=== PATIENT | male | born 1960 | race Caucasian/White ===

== ENCOUNTER 2016-07-30 15:21 | Inpatient (IN) | payer OTHER ==
[2016-07-30] MEDS ORDERED: IBUPROFEN 800 MG TAB PO PRN (17:00)
[2016-07-30] MEDS ORDERED: Etanercept [Enbrel] 50 MG SQ SCH (17:00)
[2016-07-30] MEDS ORDERED: METHOTREXATE 2.5 MG TAB PO SCH (17:00)
--- NOTE | 2016-07-30 17:40 | PDOREHIP ---
Admission [facility] - Admission - 3 Day Assessment Period Admission Date/Day 1: 07/30/16 Day 2: 07/31/16 Day 3: 08/01/16 - Active Diagnoses Comorbidities and Co-existing Conditions at Admission: 72794. None of the Above - Skin Conditions Unhealed Pressure Ulcer (1 or more/Stage 1 or >)-Admission: 0. No
[2016-07-30] MEDS: oxyCODONE IR 5 MG TAB PO PRN ×2 (18:10→21:26)
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
[2016-07-30] MEDS: PHENYTOIN SODIUM EXTENDED 100 MG CAP PO SCH (20:03)
[2016-07-30] MEDS: SENNOSIDES 1 TAB PO SCH (20:03)
[2016-07-30] MEDS: morphINE SR 15 MG TAB PO SCH (20:04)
[2016-07-30] MEDS: sulfaSALAzine 500 MG TAB PO SCH (20:04)
[2016-07-30] MEDS: levETIRAcetam 500 MG TAB PO SCH (20:05)
[2016-07-30] MEDS: FAMOTIDINE 20 MG TAB PO SCH (20:05)
[2016-07-30] MEDS: ENOXAPARIN 30 MG/0.3 ML SYR SC SCH (20:08)
[2016-07-30] MEDS ORDERED: NON-FORMULARY NEW DRUG (Ranitidine Hcl [Zantac] 300 MG) PO SCH (21:00)
[2016-07-30] MEDS ORDERED: SULFASALAZINE 1000 MG PO SCH (21:00)
[2016-07-30] MEDS: IBUPROFEN 600 MG TAB PO PRN (23:28)
[2016-07-31] MEDS: oxyCODONE IR 5 MG TAB PO PRN ×6 (01:46→23:08)
[2016-07-31] MEDS: IBUPROFEN 600 MG TAB PO PRN ×3 (06:02→23:09)
[2016-07-31 08:52] LABS: % IMMATURE GRANULYOCYTES 0.3 % (0.0-1.1); ABSOLUTE IMMATURE GRANULOCYTES 0.02 10^3/uL (0.00-0.10); ADD DIFF? NO; ADD MORPH? NO; ADD SCAN? NO; ATYPICAL LYMPHOCYTE FLAG 0 (0-99); FRAGMENT RBC FLAG 0 (0-99); HEMATOCRIT 27.1 % (40.0-51.0); HEMOGLOBIN 9.4 g/dL (13.7-17.5); LEFT SHIFT FLG 0 (0-99); LIPEMIA HEMOLYSIS FLAG 90 (0-99); MEAN CELL HEMOGLOBIN 35.7 pg (27.9-34.1); MEAN CELL HEMOGLOBIN CONCENTR. 34.7 g/dL (32.4-36.7); MEAN PLATELET VOLUME 10.8 fL (8.7-11.7); PLATELET CLUMPS FLAG 10 (0-99); PLATELET COUNT 102 10^3/uL (150-400); RED BLOOD CELL COUNT 2.63 10^6/uL (4.40-6.38); RED CELL DISTRIBUTION WIDTH 13.1 % (11.5-15.2)
[2016-07-31] MEDS: FOLIC ACID 1 MG TAB PO SCH (09:00)
[2016-07-31] MEDS: FAMOTIDINE 20 MG TAB PO SCH ×2 (09:00→21:33)
[2016-07-31] MEDS: morphINE SR 15 MG TAB PO SCH ×2 (09:01→21:33)
[2016-07-31] MEDS: levETIRAcetam 500 MG TAB PO SCH ×2 (09:01→21:33)
[2016-07-31] MEDS: NICOTINE 14 MG/24 HR PATCH TD SCH (09:02)
[2016-07-31] MEDS: POLYETHYLENE GLYCOL 3350 17 GM PKT PO SCH (09:04)
[2016-07-31] MEDS: SENNOSIDES 1 TAB PO SCH ×2 (09:04→21:33)
[2016-07-31] MEDS: PHENYTOIN SODIUM EXTENDED 100 MG CAP PO SCH ×2 (09:04→21:33)
[2016-07-31] MEDS: sulfaSALAzine 500 MG TAB PO SCH ×2 (09:05→21:33)
[2016-07-31 09:12] LABS: ANION GAP 6 mEq/L (8-16); CALCIUM 8.3 mg/dL (8.5-10.4); CARBON DIOXIDE 28 mEq/l (22-31); CHLORIDE 102 mEq/L (97-110); CREATININE 0.5 mg/dL (0.7-1.3); GLOMERULAR FILTRATION RATE > 60; GLUCOSE 90 mg/dL (70-100); POTASSIUM 3.5 mEq/L (3.5-5.2); SODIUM 136 mEq/L (134-144)
[2016-07-31] MEDS: ENOXAPARIN 30 MG/0.3 ML SYR SC SCH (09:18)
[2016-07-31] MEDS ORDERED: ENOXAPARIN 120 MG/0.8 ML SYR SC SCH (13:00)
[2016-07-31] MEDS ORDERED: ENOXAPARIN 80 MG/0.8 ML SYR SC ONE ×3 (13:00→14:50)
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
[2016-07-31] MEDS: BISACODYL 10 MG SUPP PR PRN (19:51)
[2016-07-31] MEDS: ENOXAPARIN 120 MG/0.8 ML SYR SC SCH (21:34)
[2016-08-01] MEDS: oxyCODONE IR 5 MG TAB PO PRN ×2 (03:27→12:36)
[2016-08-01] MEDS: ENOXAPARIN 120 MG/0.8 ML SYR SC SCH ×2 (08:39→20:31)
[2016-08-01] MEDS: POLYETHYLENE GLYCOL 3350 17 GM PKT PO SCH (08:40)
[2016-08-01] MEDS: FOLIC ACID 1 MG TAB PO SCH (08:40)
[2016-08-01] MEDS: morphINE SR 15 MG TAB PO SCH (08:40)
[2016-08-01] MEDS: levETIRAcetam 500 MG TAB PO SCH ×2 (08:40→20:30)
[2016-08-01] MEDS: PHENYTOIN SODIUM EXTENDED 100 MG CAP PO SCH ×2 (08:40→20:29)
[2016-08-01] MEDS: SENNOSIDES 1 TAB PO SCH ×2 (08:40→20:31)
[2016-08-01] MEDS: sulfaSALAzine 500 MG TAB PO SCH ×2 (08:40→20:31)
[2016-08-01] MEDS: FAMOTIDINE 20 MG TAB PO SCH ×2 (08:40→20:31)
[2016-08-01] MEDS: NICOTINE 14 MG/24 HR PATCH TD SCH (08:47)
[2016-08-01] MEDS: ACETAMINOPHEN 325 MG TAB PO SCH ×2 (12:37→17:15)
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
[2016-08-01] MEDS ORDERED: PNEUMOC 13-VAL CONJ-DIP CRM/PF 0.5 ML SYR IM ONE (15:00)
[2016-08-01] MEDS ORDERED: WARFARIN SODIUM 5 MG TAB PO SCH (16:00)
[2016-08-01] MEDS: IBUPROFEN 600 MG TAB PO SCH (17:17)
[2016-08-01] MEDS: morphINE SR 30 MG TAB PO SCH (20:28)
[2016-08-02] MEDS: ACETAMINOPHEN 325 MG TAB PO SCH ×5 (00:52→23:24)
[2016-08-02] MEDS: IBUPROFEN 600 MG TAB PO SCH ×2 (00:53→06:43)
[2016-08-02 08:00] LABS: INR 1.01 (0.83-1.16); PROTIME(PATIENT) 13.2 SEC (12.0-15.0)
[2016-08-02] MEDS: ENOXAPARIN 120 MG/0.8 ML SYR SC SCH ×2 (08:59→20:57)
[2016-08-02] MEDS: FAMOTIDINE 20 MG TAB PO SCH ×2 (09:00→20:56)
[2016-08-02] MEDS: FOLIC ACID 1 MG TAB PO SCH (09:00)
[2016-08-02] MEDS: PHENYTOIN SODIUM EXTENDED 100 MG CAP PO SCH ×2 (09:01→20:55)
[2016-08-02] MEDS: NICOTINE 14 MG/24 HR PATCH TD SCH (09:01)
[2016-08-02] MEDS: morphINE SR 30 MG TAB PO SCH ×2 (09:01→20:54)
[2016-08-02] MEDS: levETIRAcetam 500 MG TAB PO SCH ×2 (09:01→20:56)
[2016-08-02] MEDS: SENNOSIDES 1 TAB PO SCH ×2 (09:01→20:55)
[2016-08-02] MEDS: POLYETHYLENE GLYCOL 3350 17 GM PKT PO SCH (09:01)
[2016-08-02] MEDS: sulfaSALAzine 500 MG TAB PO SCH ×2 (09:01→20:56)
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
[2016-08-02] MEDS: oxyCODONE IR 5 MG TAB PO PRN ×4 (09:35→22:09)
[2016-08-02] MEDS: CEPHALEXIN 500 MG CAP PO SCH ×3 (13:04→23:24)
[2016-08-02] MEDS: WARFARIN SODIUM 5 MG TAB PO SCH (17:19)
[2016-08-03] MEDS: oxyCODONE IR 5 MG TAB PO PRN ×4 (04:01→22:55)
[2016-08-03] MEDS ORDERED: ACETAMINOPHEN 325 MG TAB ONE ×2 (05:54)
[2016-08-03] MEDS ORDERED: CEPHALEXIN 500 MG CAP PO ONE (05:54)
[2016-08-03] MEDS: CEPHALEXIN 500 MG CAP PO SCH ×3 (06:10→18:11)
[2016-08-03] MEDS: ACETAMINOPHEN 325 MG TAB PO SCH ×3 (06:10→18:11)
[2016-08-03] MEDS: ENOXAPARIN 120 MG/0.8 ML SYR SC SCH ×2 (08:16→20:04)
[2016-08-03] MEDS: PHENYTOIN SODIUM EXTENDED 100 MG CAP PO SCH ×2 (08:17→20:03)
[2016-08-03] MEDS: BISACODYL 10 MG SUPP PR PRN (08:17)
[2016-08-03] MEDS: NICOTINE 14 MG/24 HR PATCH TD SCH (08:17)
[2016-08-03] MEDS: FAMOTIDINE 20 MG TAB PO SCH (08:17)
[2016-08-03] MEDS: FOLIC ACID 1 MG TAB PO SCH (08:17)
[2016-08-03] MEDS: sulfaSALAzine 500 MG TAB PO SCH ×2 (08:17→20:03)
[2016-08-03] MEDS: levETIRAcetam 500 MG TAB PO SCH ×2 (08:17→20:02)
[2016-08-03] MEDS ORDERED: morphINE SR 30 MG TAB PO ONE (08:23)
[2016-08-03] MEDS: morphINE SR 30 MG TAB PO SCH ×2 (08:29→20:02)
[2016-08-03] MEDS: SENNOSIDES 1 TAB PO SCH ×2 (08:29→20:04)
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
[2016-08-03] MEDS: POLYETHYLENE GLYCOL 3350 17 GM PKT PO SCH (08:53)
[2016-08-03 09:45] LABS: INR 1.15 (0.83-1.16); PROTIME(PATIENT) 14.7 SEC (12.0-15.0)
[2016-08-03] MEDS ORDERED: RANITIDINE SYRUP 15 MG/1 ML UDSYR PO SCH (11:00)
[2016-08-03] MEDS: MAGNESIUM HYDROXIDE 30 ML UDCUP PO SCH (11:45)
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
[2016-08-03] MEDS: WARFARIN SODIUM 5 MG TAB PO SCH (15:49)
[2016-08-03] MEDS: Etanercept [Enbrel] 50 MG SQ SCH (16:11)
[2016-08-03] MEDS: METHOTREXATE 2.5 MG TAB PO SCH (16:12)
[2016-08-03] MEDS: DOCUSATE SODIUM 100 MG CAP PO SCH ×2 (18:06→20:04)
[2016-08-03] MEDS: RANITIDINE 300MG PO SCH (22:51)
[2016-08-04] MEDS: CEPHALEXIN 500 MG CAP PO SCH ×4 (00:29→17:36)
[2016-08-04] MEDS: ACETAMINOPHEN 325 MG TAB PO SCH ×4 (00:29→17:36)
[2016-08-04] MEDS: oxyCODONE IR 5 MG TAB PO PRN ×6 (03:27→22:04)
[2016-08-04] MEDS ORDERED: BACITRACIN OINTMENT 1 PACKET TP ONE (04:04)
[2016-08-04 07:58] LABS: INR 1.5 (0.83-1.16); PROTIME(PATIENT) 18.1 SEC (12.0-15.0)
[2016-08-04] MEDS: morphINE SR 30 MG TAB PO SCH ×2 (08:27→20:15)
[2016-08-04] MEDS: PHENYTOIN SODIUM EXTENDED 100 MG CAP PO SCH ×2 (08:27→20:23)
[2016-08-04] MEDS: SENNOSIDES 1 TAB PO SCH ×2 (08:27→20:23)
[2016-08-04] MEDS: levETIRAcetam 500 MG TAB PO SCH ×2 (08:27→20:15)
[2016-08-04] MEDS: DOCUSATE SODIUM 100 MG CAP PO SCH ×2 (08:28→20:17)
[2016-08-04] MEDS: ENOXAPARIN 120 MG/0.8 ML SYR SC SCH ×2 (08:28→22:05)
[2016-08-04] MEDS: NICOTINE 14 MG/24 HR PATCH TD SCH (08:28)
[2016-08-04] MEDS: FOLIC ACID 1 MG TAB PO SCH (08:28)
[2016-08-04] MEDS: sulfaSALAzine 500 MG TAB PO SCH ×2 (08:28→20:16)
[2016-08-04] MEDS: POLYETHYLENE GLYCOL 3350 17 GM PKT PO SCH (08:29)
[2016-08-04] MEDS: MAGNESIUM HYDROXIDE 30 ML UDCUP PO SCH (08:29)
[2016-08-04] MEDS: RANITIDINE 300MG PO SCH ×2 (08:33→22:05)
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
[2016-08-04] MEDS: WARFARIN SODIUM 5 MG TAB PO SCH (15:25)
[2016-08-04] MEDS: CALCIUM CARBONATE 500 MG CHEWABLE TAB PO PRN (21:06)
[2016-08-05] MEDS: ACETAMINOPHEN 325 MG TAB PO SCH ×4 (00:56→18:21)
[2016-08-05] MEDS: CEPHALEXIN 500 MG CAP PO SCH ×4 (00:57→18:21)
[2016-08-05] MEDS: oxyCODONE IR 5 MG TAB PO PRN ×7 (00:57→21:37)
[2016-08-05] MEDS: PHENYTOIN SODIUM EXTENDED 100 MG CAP PO SCH ×2 (08:43→21:35)
[2016-08-05] MEDS: POLYETHYLENE GLYCOL 3350 17 GM PKT PO SCH (08:44)
[2016-08-05] MEDS: ENOXAPARIN 120 MG/0.8 ML SYR SC SCH ×2 (08:44→21:37)
[2016-08-05] MEDS: MAGNESIUM HYDROXIDE 30 ML UDCUP PO SCH (08:44)
[2016-08-05] MEDS: sulfaSALAzine 500 MG TAB PO SCH ×2 (08:44→21:35)
[2016-08-05] MEDS: levETIRAcetam 500 MG TAB PO SCH ×2 (08:45→21:51)
[2016-08-05] MEDS: NICOTINE 14 MG/24 HR PATCH TD SCH (08:45)
[2016-08-05] MEDS: SENNOSIDES 1 TAB PO SCH ×2 (08:45→21:35)
[2016-08-05] MEDS: FOLIC ACID 1 MG TAB PO SCH (08:45)
[2016-08-05] MEDS: DOCUSATE SODIUM 100 MG CAP PO SCH ×2 (08:45→21:37)
[2016-08-05] MEDS: CHOLECALCIFEROL VIT D3 2,000 UNITS TAB/CAP PO SCH (08:45)
[2016-08-05] MEDS: morphINE SR 30 MG TAB PO SCH ×2 (08:46→21:35)
[2016-08-05] MEDS ORDERED: METHOTREXATE 2.5 MG TAB PO SCH (09:00)
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
[2016-08-05 09:25] LABS: INR 1.77 (0.83-1.16); PROTIME(PATIENT) 20.7 SEC (12.0-15.0)
[2016-08-05] MEDS: RANITIDINE 300MG PO SCH ×2 (11:21→21:37)
[2016-08-05] MEDS: FLUoxetine 20 MG CAP PO SCH (11:37)
[2016-08-05] MEDS: WARFARIN SODIUM 5 MG TAB PO SCH (15:47)
[2016-08-05] MEDS: CALCIUM CARBONATE 500 MG CHEWABLE TAB PO PRN (21:39)
[2016-08-06] MEDS: ACETAMINOPHEN 325 MG TAB PO SCH ×5 (00:35→23:18)
[2016-08-06] MEDS: CALCIUM CARBONATE 500 MG CHEWABLE TAB PO PRN ×2 (00:36→19:28)
[2016-08-06] MEDS: CEPHALEXIN 500 MG CAP PO SCH ×5 (00:36→23:18)
[2016-08-06] MEDS: oxyCODONE IR 5 MG TAB PO PRN ×7 (00:36→23:19)
[2016-08-06 08:07] LABS: INR 2.21 (0.83-1.16); PROTIME(PATIENT) 24.7 SEC (12.0-15.0)
[2016-08-06] MEDS: MAGNESIUM HYDROXIDE 30 ML UDCUP PO SCH (08:19)
[2016-08-06] MEDS: CHOLECALCIFEROL VIT D3 2,000 UNITS TAB/CAP PO SCH (08:23)
[2016-08-06] MEDS: sulfaSALAzine 500 MG TAB PO SCH ×2 (08:23→20:39)
[2016-08-06] MEDS: DOCUSATE SODIUM 100 MG CAP PO SCH ×2 (08:24→20:41)
[2016-08-06] MEDS: levETIRAcetam 500 MG TAB PO SCH ×2 (08:24→20:40)
[2016-08-06] MEDS: FOLIC ACID 1 MG TAB PO SCH (08:24)
[2016-08-06] MEDS: SENNOSIDES 1 TAB PO SCH ×2 (08:24→20:41)
[2016-08-06] MEDS: PHENYTOIN SODIUM EXTENDED 100 MG CAP PO SCH ×2 (08:24→20:38)
[2016-08-06] MEDS: morphINE SR 30 MG TAB PO SCH ×2 (08:24→20:40)
[2016-08-06] MEDS: FLUoxetine 20 MG CAP PO SCH (08:24)
[2016-08-06] MEDS: POLYETHYLENE GLYCOL 3350 17 GM PKT PO SCH (08:25)
[2016-08-06] MEDS: NICOTINE 14 MG/24 HR PATCH TD SCH (08:25)
[2016-08-06] MEDS: ENOXAPARIN 120 MG/0.8 ML SYR SC SCH ×2 (08:25→20:38)
[2016-08-06] MEDS: RANITIDINE 300MG PO SCH ×2 (08:26→20:43)
[2016-08-06] MEDS ORDERED: WARFARIN SODIUM 7.5 MG TAB PO ONE (16:00)
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
--- NOTE | 2016-08-06 17:54 | WOCRNPDOC ---
WOCRN Advanced Assessment Note - Skin Integrity Problem, Advanced Assess Left Medial Thigh Dressing Type: Allevyn Life Dressing Description: Clean/Dry, Intact Closure Description: Sutures Exudate Amount: Scant Exudate Color: Reddish/Yellow Exudate Characteristic(s): Serosanguinous Integumentary Issue Intervention: Dressing Changed, Dressing Initialed & Dated Jackie Wound Tissue: Erythema Jackie Wound Swelling: Mild Wound Bed Color: Black Wound Bed Constitution: Stable Eschar Site Odor: None Site Measurement - Head-to-Toe Length X Width X Depth (cm): 0.8cmx5.2cmx eschar Skin Integrity Problem Comment: Adhered layer of stable eschar noted along suture line. Medially, sutures are embedded in eschar. As a result, I am unable to determine if the incision is approximated. There is erythema extending approximately 2cm out from this incision, w/ some minimal jackie-wound swelling noted. There is, however, no increased warmth, no purulence, and no c/o pain when site was cleaned w/ NS and gauze. Applied Medihoney Calcium Alginate to facilitate debridement of eschar. Advised nursing to continue to monitor site for increased erythema, swelling, or pain. Report given to handicraft or hobby shop manager Ernesto and Dr. Whitmore. Wound RN will round on patient again on Thursday 08/10.
[2016-08-07] MEDS: oxyCODONE IR 5 MG TAB PO PRN ×6 (03:23→22:16)
[2016-08-07] MEDS: ACETAMINOPHEN 325 MG TAB PO SCH ×4 (05:40→23:36)
[2016-08-07] MEDS: CEPHALEXIN 500 MG CAP PO SCH ×4 (05:40→23:36)
[2016-08-07] MEDS: CHOLECALCIFEROL VIT D3 2,000 UNITS TAB/CAP PO SCH (08:16)
[2016-08-07] MEDS: ENOXAPARIN 120 MG/0.8 ML SYR SC SCH (08:17)
[2016-08-07] MEDS: MAGNESIUM HYDROXIDE 30 ML UDCUP PO SCH (08:17)
[2016-08-07] MEDS: levETIRAcetam 500 MG TAB PO SCH ×2 (08:17→21:09)
[2016-08-07] MEDS: FOLIC ACID 1 MG TAB PO SCH (08:17)
[2016-08-07] MEDS: FLUoxetine 20 MG CAP PO SCH (08:17)
[2016-08-07] MEDS: DOCUSATE SODIUM 100 MG CAP PO SCH ×2 (08:17→21:09)
[2016-08-07] MEDS: NICOTINE 14 MG/24 HR PATCH TD SCH (08:18)
[2016-08-07] MEDS: morphINE SR 30 MG TAB PO SCH ×2 (08:18→21:07)
[2016-08-07] MEDS: SENNOSIDES 1 TAB PO SCH ×2 (08:19→21:08)
[2016-08-07] MEDS: PHENYTOIN SODIUM EXTENDED 100 MG CAP PO SCH ×2 (08:19→21:07)
[2016-08-07] MEDS: RANITIDINE 300MG PO SCH ×2 (08:19→21:06)
[2016-08-07] MEDS: POLYETHYLENE GLYCOL 3350 17 GM PKT PO SCH (08:19)
[2016-08-07] MEDS: sulfaSALAzine 500 MG TAB PO SCH ×2 (08:20→21:08)
[2016-08-07 12:13] LABS: INR 2.27 (0.83-1.16); PROTIME(PATIENT) 25.2 SEC (12.0-15.0)
[2016-08-07] MEDS ORDERED: WARFARIN SODIUM 5 MG TAB PO ONE (16:00)
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
[2016-08-07] MEDS: CALCIUM CARBONATE 500 MG CHEWABLE TAB PO PRN (21:10)
[2016-08-08] MEDS: oxyCODONE IR 5 MG TAB PO PRN ×6 (04:00→22:40)
[2016-08-08] MEDS: ACETAMINOPHEN 325 MG TAB PO SCH ×4 (05:52→22:38)
[2016-08-08] MEDS: CEPHALEXIN 500 MG CAP PO SCH ×4 (05:52→22:39)
[2016-08-08 08:29] LABS: INR 2.39 (0.83-1.16); PROTIME(PATIENT) 26.3 SEC (12.0-15.0)
[2016-08-08] MEDS: MAGNESIUM HYDROXIDE 30 ML UDCUP PO SCH (08:38)
[2016-08-08] MEDS: levETIRAcetam 500 MG TAB PO SCH ×2 (08:39→22:39)
[2016-08-08] MEDS: sulfaSALAzine 500 MG TAB PO SCH ×2 (08:39→22:38)
[2016-08-08] MEDS: CHOLECALCIFEROL VIT D3 2,000 UNITS TAB/CAP PO SCH (08:39)
[2016-08-08] MEDS: FLUoxetine 20 MG CAP PO SCH (08:39)
[2016-08-08] MEDS: SENNOSIDES 1 TAB PO SCH ×2 (08:39→22:39)
[2016-08-08] MEDS: FOLIC ACID 1 MG TAB PO SCH (08:39)
[2016-08-08] MEDS: NICOTINE 14 MG/24 HR PATCH TD SCH (08:39)
[2016-08-08] MEDS: POLYETHYLENE GLYCOL 3350 17 GM PKT PO SCH (08:39)
[2016-08-08] MEDS: PHENYTOIN SODIUM EXTENDED 100 MG CAP PO SCH ×2 (08:39→22:37)
[2016-08-08] MEDS: DOCUSATE SODIUM 100 MG CAP PO SCH ×2 (08:39→22:39)
[2016-08-08] MEDS: morphINE SR 30 MG TAB PO SCH ×2 (08:40→22:40)
[2016-08-08] MEDS: RANITIDINE 300MG PO SCH ×2 (08:40→22:41)
[2016-08-08] MEDS: CALCIUM CARBONATE 500 MG CHEWABLE TAB PO PRN ×2 (15:33→18:36)
[2016-08-08] MEDS ORDERED: WARFARIN SODIUM 5 MG TAB PO ONE (16:00)
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
[2016-08-09] MEDS: oxyCODONE IR 5 MG TAB PO PRN ×5 (02:13→21:26)
[2016-08-09] MEDS: CEPHALEXIN 500 MG CAP PO SCH (06:22)
[2016-08-09] MEDS: ACETAMINOPHEN 325 MG TAB PO SCH ×4 (06:22→23:22)
[2016-08-09] MEDS: NICOTINE 14 MG/24 HR PATCH TD SCH (09:17)
[2016-08-09] MEDS: FOLIC ACID 1 MG TAB PO SCH (09:17)
[2016-08-09] MEDS: CHOLECALCIFEROL VIT D3 2,000 UNITS TAB/CAP PO SCH (09:17)
[2016-08-09] MEDS: MAGNESIUM HYDROXIDE 30 ML UDCUP PO SCH (09:17)
[2016-08-09] MEDS: sulfaSALAzine 500 MG TAB PO SCH ×2 (09:19→21:27)
[2016-08-09] MEDS: FLUoxetine 20 MG CAP PO SCH (09:19)
[2016-08-09] MEDS: PHENYTOIN SODIUM EXTENDED 100 MG CAP PO SCH ×2 (09:19→21:27)
[2016-08-09] MEDS: morphINE SR 30 MG TAB PO SCH ×2 (09:20→21:26)
[2016-08-09] MEDS: DOCUSATE SODIUM 100 MG CAP PO SCH ×2 (09:20→21:27)
[2016-08-09] MEDS: SENNOSIDES 1 TAB PO SCH ×2 (09:20→21:27)
[2016-08-09] MEDS: POLYETHYLENE GLYCOL 3350 17 GM PKT PO SCH (09:20)
[2016-08-09] MEDS: levETIRAcetam 500 MG TAB PO SCH ×2 (09:20→21:27)
[2016-08-09] MEDS: RANITIDINE 300MG PO SCH ×2 (09:31→23:22)
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
[2016-08-09] MEDS ORDERED: WARFARIN SODIUM 7.5 MG TAB PO SCH (16:00)
[2016-08-09] MEDS ORDERED: BACITRACIN OINTMENT 1 PACKET TP ONE (21:55)
[2016-08-10] MEDS: oxyCODONE IR 5 MG TAB PO PRN ×5 (03:57→20:20)
[2016-08-10] MEDS: ACETAMINOPHEN 325 MG TAB PO SCH ×3 (06:27→17:54)
[2016-08-10] MEDS: BISACODYL 10 MG SUPP PR PRN (06:27)
[2016-08-10] MEDS: MAGNESIUM HYDROXIDE 30 ML UDCUP PO SCH (08:43)
[2016-08-10] MEDS: levETIRAcetam 500 MG TAB PO SCH ×2 (08:43→20:21)
[2016-08-10] MEDS: PHENYTOIN SODIUM EXTENDED 100 MG CAP PO SCH ×2 (08:43→20:20)
[2016-08-10] MEDS: sulfaSALAzine 500 MG TAB PO SCH ×2 (08:44→20:21)
[2016-08-10] MEDS: FLUoxetine 20 MG CAP PO SCH (08:44)
[2016-08-10] MEDS: NICOTINE 14 MG/24 HR PATCH TD SCH (08:44)
[2016-08-10] MEDS: CHOLECALCIFEROL VIT D3 2,000 UNITS TAB/CAP PO SCH (08:44)
[2016-08-10] MEDS: morphINE SR 30 MG TAB PO SCH ×2 (08:45→20:20)
[2016-08-10] MEDS: FOLIC ACID 1 MG TAB PO SCH (08:45)
[2016-08-10] MEDS: SENNOSIDES 1 TAB PO SCH ×2 (08:45→20:21)
[2016-08-10] MEDS: DOCUSATE SODIUM 100 MG CAP PO SCH ×2 (08:45→20:21)
[2016-08-10] MEDS: RANITIDINE 300MG PO SCH ×2 (08:56→22:21)
[2016-08-10] MEDS: POLYETHYLENE GLYCOL 3350 17 GM PKT PO SCH (08:58)
[2016-08-10 09:27] LABS: INR 3.02 (0.83-1.16); PROTIME(PATIENT) 31.7 SEC (12.0-15.0)
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
--- NOTE | 2016-08-10 15:01 | WOCRNPDOC ---
MICHELLE Advanced Assessment Note - Skin Integrity Problem, Advanced Assess Left Knee Dressing Type: Allevyn Life Dressing Description: Clean/Dry Exudate Amount: Scant Exudate Characteristic(s): Serosanguinous Integumentary Issue Intervention: Dressing Changed Jackie Wound Tissue: Intact Jackie Wound Swelling: None Wound Bed Color: Red, Yellow Wound Bed Constitution: Granulation Tissue, Smooth Tissue, Adhered Slough Wound Edges: Epithelizing Site Measurement - Head-to-Toe Length X Width X Depth (cm): 1.9cmx2.6cmx0.1cm Skin Integrity Problem Comment: Abrasion on L knee w/ 10% adhered slough in wound bed, remaining wound bed 50/50 smooth and granulating tissues. Applied honey alginate to loosen slough, covered w/ Allevyn Life. Left Elbow Dressing Type: Allevyn Life Dressing Description: Clean/Dry, Intact Exudate Amount: Scant Exudate Color: Reddish/Yellow Exudate Characteristic(s): Serosanguinous Integumentary Issue Intervention: Dressing Changed, Silver Gel Applied Jackie Wound Tissue: Intact Jackie Wound Swelling: None Wound Bed Color: Red Wound Bed Constitution: Granulation Tissue, Smooth Tissue Skin Integrity Problem Comment: Healing abrasion noted to L elbow, w/ 80% granulation tissue. Silver gel applied, and site re-covered w/ Allevyn Life dressing. Left Medial Thigh Dressing Type: Allevyn Life Dressing Description: Clean/Dry, Intact Closure Description: Sutures Exudate Amount: Minimal Exudate Color: Reddish/Yellow Exudate Characteristic(s): Serosanguinous Integumentary Issue Intervention: Dressing Changed Jackie Wound Tissue: Ecchymotic, Erythema Jackie Wound Swelling: Mild Wound Bed Color: Black, Red, Yellow Wound Bed Constitution: Smooth Tissue, Mixed Loose & Adhered Slough/Eschar Site Odor: None Skin Integrity Problem Comment: Eschar noted along length of wound on Tuesday is beginning to soften and slough off. Remains well-adhered along the suture line. Using forceps, I was able to pull some of this necrotic tissue through the existing sutures and cut it away w/ scissors. There is some jackie-wound erythema , though decreased since previous assessment. Site assessed by Dr. Whitmore, who continues to be concerned about infection. Re-applied honey alginate to continue debridement of necrotic tissue. Wound RN will round on patient again Sunday 08/13 prior to his discharge to reassess.
[2016-08-10] MEDS ORDERED: WARFARIN SODIUM 5 MG TAB PO ONE (16:00)
[2016-08-10] MEDS: METHOTREXATE 2.5 MG TAB PO SCH (16:41)
[2016-08-10] MEDS: Etanercept [Enbrel] 50 MG SQ SCH (16:49)
[2016-08-11] MEDS: ACETAMINOPHEN 325 MG TAB PO SCH ×5 (00:08→22:33)
[2016-08-11] MEDS: oxyCODONE IR 5 MG TAB PO PRN ×6 (00:10→22:33)
[2016-08-11 07:58] LABS: INR 3.16 (0.83-1.16); PROTIME(PATIENT) 32.9 SEC (12.0-15.0)
[2016-08-11] MEDS: CHOLECALCIFEROL VIT D3 2,000 UNITS TAB/CAP PO SCH (08:01)
[2016-08-11] MEDS: DOCUSATE SODIUM 100 MG CAP PO SCH ×2 (08:02→22:32)
[2016-08-11] MEDS: levETIRAcetam 500 MG TAB PO SCH ×2 (08:02→22:33)
[2016-08-11] MEDS: NICOTINE 14 MG/24 HR PATCH TD SCH (08:02)
[2016-08-11] MEDS: PHENYTOIN SODIUM EXTENDED 100 MG CAP PO SCH ×2 (08:02→22:32)
[2016-08-11] MEDS: MAGNESIUM HYDROXIDE 30 ML UDCUP PO SCH (08:03)
[2016-08-11] MEDS: POLYETHYLENE GLYCOL 3350 17 GM PKT PO SCH (08:03)
[2016-08-11] MEDS: sulfaSALAzine 500 MG TAB PO SCH ×2 (08:03→22:33)
[2016-08-11] MEDS: FOLIC ACID 1 MG TAB PO SCH (08:03)
[2016-08-11] MEDS: morphINE SR 30 MG TAB PO SCH ×2 (08:03→22:32)
[2016-08-11] MEDS: SENNOSIDES 1 TAB PO SCH ×2 (08:03→22:33)
[2016-08-11] MEDS: FLUoxetine 20 MG CAP PO SCH (08:03)
[2016-08-11] MEDS: RANITIDINE 300MG PO SCH ×2 (08:04→22:34)
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
[2016-08-12] MEDS: oxyCODONE IR 5 MG TAB PO PRN ×6 (02:01→20:39)
[2016-08-12] MEDS: ACETAMINOPHEN 325 MG TAB PO SCH ×3 (06:24→17:37)
[2016-08-12 07:21] VITALS: RESP 18; O2SAT 92
[2016-08-12] MEDS: CHOLECALCIFEROL VIT D3 2,000 UNITS TAB/CAP PO SCH (08:21)
[2016-08-12] MEDS: POLYETHYLENE GLYCOL 3350 17 GM PKT PO SCH (08:21)
[2016-08-12] MEDS: NICOTINE 14 MG/24 HR PATCH TD SCH (08:21)
[2016-08-12] MEDS: SENNOSIDES 1 TAB PO SCH ×2 (08:22→20:39)
[2016-08-12] MEDS: RANITIDINE 300MG PO SCH ×2 (08:22→20:40)
[2016-08-12] MEDS: PHENYTOIN SODIUM EXTENDED 100 MG CAP PO SCH ×2 (08:22→20:39)
[2016-08-12] MEDS: DOCUSATE SODIUM 100 MG CAP PO SCH ×2 (08:22→20:39)
[2016-08-12] MEDS: FOLIC ACID 1 MG TAB PO SCH (08:22)
[2016-08-12] MEDS: FLUoxetine 20 MG CAP PO SCH (08:22)
[2016-08-12] MEDS: MAGNESIUM HYDROXIDE 30 ML UDCUP PO SCH (08:22)
[2016-08-12] MEDS: sulfaSALAzine 500 MG TAB PO SCH ×2 (08:22→20:39)
[2016-08-12] MEDS: morphINE SR 30 MG TAB PO SCH ×2 (08:27→20:39)
[2016-08-12] MEDS: levETIRAcetam 500 MG TAB PO SCH ×2 (08:51→20:39)
[2016-08-12 09:12] LABS: INR 2.71 (0.83-1.16); PROTIME(PATIENT) 29.1 SEC (12.0-15.0)
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
[2016-08-12] MEDS ORDERED: WARFARIN SODIUM 5 MG TAB PO ONE (16:00)
[2016-08-13] MEDS: ACETAMINOPHEN 325 MG TAB PO SCH ×3 (01:05→11:48)
[2016-08-13] MEDS: oxyCODONE IR 5 MG TAB PO PRN ×4 (01:06→11:48)
[2016-08-13 06:11] VITALS: BP 121/76; PULSE 70; TEMP 97.7
--- NOTE | 2016-08-13 07:44 | WOCRNPDOC ---
WOCRN Advanced Assessment Note - Skin Integrity Problem, Advanced Assess Left Knee Dressing Type: Allevyn Life, Honey Alginate Dressing Description: Intact Exudate Amount: Scant Exudate Color: Reddish/Yellow Exudate Characteristic(s): Serosanguinous Integumentary Issue Intervention: Visualized Under Dressing Jackie Wound Tissue: Intact Jackie Wound Swelling: None Wound Bed Constitution: Granulation Tissue, Loose Slough Wound Edges: Epithelizing Site Odor: None Skin Integrity Problem Comment: Decreased slough since previous assessment, w/ new granulation noted in 75% of wound bed. Jackie-wound intact w/ no erythema or swelling. Continue w/ plan of care in outpatient setting until healed. Left Medial Thigh Dressing Type: Allevyn Life, Honey Alginate, Telfa Dressing Description: Not Intact Exudate Amount: Scant Exudate Color: Reddish/Yellow Exudate Characteristic(s): Serosanguinous Integumentary Issue Intervention: Dressing Changed, Mechanical Debridement Jackie Wound Tissue: Erythema (discrete, immediately jackie-wound), Swollen (mild) Jackie Wound Swelling: Mild Wound Bed Color: Red, Yellow Wound Bed Constitution: Smooth Tissue, Adhered Slough, Loose Slough Site Odor: None Skin Integrity Problem Comment: Sutures removed by MD on 08/12. Unapproximated incision w/ loose eschar noted. This tissue was removed w/ forceps and scissors , revealing adhered and loose slough along suture line. Erythema remains discrete, confined to immediate jackie-wound, and patient continues to deny any pain to site. Changed dressing to Hydrofera Blue classic to continue autolysis of necrotic tissue and provide anti-microbial protection. Continue w/ dressing changes every 3 days by home performance consultant, w/ follow up w/ physician w/in 2 weeks of dc. Report given to director case management Mia.
[2016-08-13 08:20] LABS: INR 2.57 (0.83-1.16); PROTIME(PATIENT) 27.9 SEC (12.0-15.0)
[2016-08-13] MEDS: CHOLECALCIFEROL VIT D3 2,000 UNITS TAB/CAP PO SCH (09:36)
[2016-08-13] MEDS: DOCUSATE SODIUM 100 MG CAP PO SCH (09:36)
[2016-08-13] MEDS: FOLIC ACID 1 MG TAB PO SCH (09:37)
[2016-08-13] MEDS: levETIRAcetam 500 MG TAB PO SCH (09:37)
[2016-08-13] MEDS: morphINE SR 30 MG TAB PO SCH (09:37)
[2016-08-13] MEDS: FLUoxetine 20 MG CAP PO SCH (09:37)
[2016-08-13] MEDS: MAGNESIUM HYDROXIDE 30 ML UDCUP PO SCH (09:37)
[2016-08-13] MEDS: NICOTINE 14 MG/24 HR PATCH TD SCH (09:38)
[2016-08-13] MEDS: RANITIDINE 300MG PO SCH (09:38)
[2016-08-13] MEDS: SENNOSIDES 1 TAB PO SCH (09:39)
[2016-08-13] MEDS: PHENYTOIN SODIUM EXTENDED 100 MG CAP PO SCH (09:39)
[2016-08-13] MEDS: POLYETHYLENE GLYCOL 3350 17 GM PKT PO SCH (09:39)
[2016-08-13] MEDS: sulfaSALAzine 500 MG TAB PO SCH (09:40)
--- NOTE | 2016-08-13 15:13 | PDOREHIP ---
Admission [facility] - Admission - 3 Day Assessment Period Admission Date/Day 1: 07/30/16 Day 2: 07/31/16 Day 3: 08/01/16 Discharge [facility] - Discharge - 3 Day Assessment Period 2 Days Prior to Anticipated Discharge Date: 08/11/16 1 Day Prior to Anticipated Discharge Date: 08/12/16 Anticipated Discharge Date: 08/13/16 - Discharge Skin Conditions Unhealed Pressure Ulcer (1 or more/Stage 1 or >)-Discharge: 0. No
[2016-08-13] MEDS ORDERED: WARFARIN SODIUM 3 MG TAB PO SCH (16:00)
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
== END 2016-08-13 12:50 | disposition home health service (06) | DRG 560 ==
LOC: BREH 16:15 → UNDOADMIN 16:25 → BREH 08-12 13:30
PROVIDERS: ADMIT Internal Medicine; ATTEND Internal Medicine
PROC: F07M3ZZ Motor Function Treatment of Musculoskeletal System - Whole Body (ICD-10-PCS; principal; 2016-07-30)
PROC: F08Z4ZZ Home Management Treatment (ICD-10-PCS; principal; 2016-07-30)
DX: S32.501D Unspecified fracture of right pubis, subsequent encounter for fracture with routine healing (principal); S06.0X9D Concussion with loss of consciousness of unspecified duration, subsequent encounter; S22.41XD Multiple fractures of ribs, right side, subsequent encounter for fracture with routine healing; S42.034D Nondisplaced fracture of lateral end of right clavicle, subsequent encounter for fracture with routine healing; S50.311D Abrasion of right elbow, subsequent encounter; K59.00 Constipation, unspecified; G40.909 Epilepsy, unspecified, not intractable, without status epilepticus; M06.9 Rheumatoid arthritis, unspecified; V03.10XD Pedestrian on foot injured in collision with car, pick-up truck or van in traffic accident, subsequent encounter; Y92.410 Unspecified street and highway as the place of occurrence of the external cause; I82.412 Acute embolism and thrombosis of left femoral vein; I82.431 Acute embolism and thrombosis of right popliteal vein; L03.116 Cellulitis of left lower limb; K59.03 Drug induced constipation; Z23 Encounter for immunization
CPT/HCPCS: 92507-GN; 92522-GN; 97110-GO; 97110-GP; 97112-GP; 97116-GP; 97163-GP; 97166-GO; 97530-GO; 97530-GP; 97535-GO; G0009; J1650